=== PATIENT | female | born 1960 | race Caucasian/White ===

== ENCOUNTER 2020-10-19 12:07 | Outpatient (CLI) | payer SELFPAY ==
[~2020-10-19] VITALS: Ht 170.2 cm; Wt 90.8 kg
[2020-10-20] MEDS ORDERED: LEVO75CA5 PO (09:32)
[2020-10-20] MEDS ORDERED: MELO10CA3 PO (09:32)
== END 2020-10-20 10:04 ==
LOC: PREOP 12:07
PROVIDERS: ATTEND Internal Medicine
DX: Z01.818 Encounter for other preprocedural examination (principal); Z12.11 Encounter for screening for malignant neoplasm of colon

== ENCOUNTER 2020-10-27 08:05 | Day surgery (SDC) | payer SELFPAY ==
--- NOTE | 2020-10-19 15:51 | HISTORY AND PHYSICAL ---
DATE OF SERVICE: COLONOSCOPY HISTORY AND PHYSICAL REFERRING PROVIDER: OSMIN Leiva INDICATION FOR THE PROCEDURE: Screening colonoscopy. The patient is a 60-year-old white female referred for her first screening colonoscopy, deemed to be of average risk as she is not aware of any family history for colon cancer and denies melena, bright red blood per rectum or change in bowel habit. PAST MEDICAL HISTORY: Significant for osteoarthritis of the knees and presumed Get's thyroiditis, on thyroid replacement. PAST SURGICAL HISTORY: She had arthroscopic surgery of the right knee in 1999, in 2003 and appendectomy in 2008 and tonsillectomy and adenoidectomy as a child. 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 ALLERGIES: SHE REPORTS TO [facility], WHICH CAUSES RASH. She is not aware of any other medication-related allergies. PHYSICAL EXAMINATION: GENERAL: Reveals a white female, appears to be in no acute distress. VITAL SIGNS: Weight 207 pounds, blood pressure 127/74. HEENT: Unremarkable. CHEST: Clear. CARDIOVASCULAR: Revealed a regular rate and rhythm without murmur, S3 or S4. ABDOMEN: Soft, supple without mass, organomegaly or tenderness. EXTREMITIES: Reveal no cyanosis, clubbing or edema. ASSESSMENT: The patient was set up for screening colonoscopy. Prep instructions with split dose Colyte were given and questions were answered. Job ID: [id number] DocumentID: [id number] Dictated Date: 10/13/2020 11:39:33 [employer] Chief Date: 10/13/2020 16:38:05 Dictated By: GARY LOCO MD MTDD
[2020-10-27] VITALS (13 sets, daily range): BP systolic 117–159; BP diastolic 55–68
[~2020-10-27] VITALS: Ht 170.2 cm; Wt 90.8 kg
[~2020-10-27 08:05] MED LIST: D5 LR IV SOLUTION 1,000 ML IV ONE; LEVO75CA5 PO; MELO10CA3 PO
--- NOTE | 2020-10-27 08:26 | Pre-Op Note & Conscious Sedat ---
Pre-Operative Progress Note H&P Reviewed The H&P was reviewed, patient examined and no changes noted. Date H&P Reviewed: Oct 27, 2020 Time H&P Reviewed: 08:26 Conscious Sedation Pre-Proced ASA Score 2 For ASA 3 and 4: Consider anesthesia and medical clearance. Also, for patients with a history of failed moderate sedation consider anesthesia. Airway Lungs Heart ASA score ASA 1: a normal healthy patient ASA 2: a patient with a mild systemic disease (mid diabetes, controlled hypertension, obesity ASA 3: a patient with a severe systemic disease that limits activity (angina, COPD, prior Myocardial infarction) ASA 4: a patient with an incapacitating disease that is a constant threat to life (CHF, renal failure) ASA 5: a moribund patient not expected to survive 24 hrs. (ruptured aneurysm) ASA 6: a declared brain- patient whose organs are being harvested. For emergent operations, add the letter E after the classification Mallampati Classification Grade 2 Sedation Plan Analgesia, Amnesia, Plan communicated to team members, Discussed options with patient/fam, Discussed risks with patient/fam The patient is an appropriate candidate to undergo the planned procedure, sedation, and anesthesia. The patient immediately re-assessed prior to indication. GARY LOCO MD Oct 27, 2020 08:26
[2020-10-27] MEDS ORDERED: D5 LR IV SOLUTION 1,000 ML IV PRN (08:30)
[2020-10-27] MEDS ORDERED: LIDOCAINE JELLY 2% 6 ML SYRINGE MM PRN (08:30)
[2020-10-27] MEDS ORDERED: fentaNYL INJ 100 MCG/2 ML AMP IVP ONE (08:30)
[2020-10-27] MEDS ORDERED: MIDAZOLAM 5 MG/5 ML (VERSED) VIAL ONE (08:51)
[2020-10-27] MEDS ORDERED: fentaNYL INJ 100 MCG/2 ML AMP ONE (08:51)
[2020-10-27] MEDS ORDERED: LIDOCAINE JELLY 2% 6 ML SYRINGE ONE (08:51)
[2020-10-27] MEDS: MIDAZOLAM 5 MG/5 ML (VERSED) VIAL IV ONE (09:14)
--- NOTE | 2020-10-27 17:15 | OPERATIVE REPORT ---
DATE OF SERVICE: 10/27/2020 COLONOSCOPY SUMMARY INDICATION FOR THE PROCEDURE: Screening colonoscopy. The patient was placed in the left lateral decubitus position. Prior to undergoing colonoscopy, digital rectal evaluation was performed. Anal sphincter tone was normal and the perianal reflex is intact. The colonoscope was then inserted into the rectum and under direct visualization advanced to cecum. The cecum was identified by identification of the ileocecal valve and the cecal strap. Photographic documentation was obtained. Careful inspection was made as the colonoscope was withdrawn. Quality of prep was good. The patient tolerated the procedure well. FINDINGS: There was no evidence for internal or external hemorrhoids and the rectum was unremarkable. A moderate number of small to medium size sigmoid diverticulum were present without evidence for diverticulitis. No other sigmoid colonic abnormalities were appreciated. The descending colon, transverse colon and ascending colon were unremarkable. There was a diminutive 3 mm sessile adenomatous appearing cecal polyp present. It was photographed and biopsied and ablated and submitted for histopathology. ASSESSMENT AND PLAN: 1. Moderate diverticular disease confined to the sigmoid colon was present without evidence for diverticulitis. 2. One diminutive adenomatous appearing polyp was removed via hot forceps from the cecum. We will await histopathology report before making future recommendation for screening colonoscopy. Ss long as there are no suprises on histopathology report as the patient reports no family history of colon cancer, would likely be advocating 10-year interval. Job ID: [id number] DocumentID: [id number] Dictated Date: 10/27/2020 11:13:50 [employer] Engineer Date: 10/27/2020 17:14:38 Dictated By: GARY LOCO MD [id number]
== END 2020-10-27 10:25 | disposition home or self-care (01) ==
LOC: ENDO 08:05
PROVIDERS: ATTEND Internal Medicine
DX: Z12.11 Encounter for screening for malignant neoplasm of colon (principal); D12.0 Benign neoplasm of cecum; K57.30 Diverticulosis of large intestine without perforation or abscess without bleeding; M17.0 Bilateral primary osteoarthritis of knee; E06.3 Autoimmune thyroiditis; Z79.890 Hormone replacement therapy; Z90.89 Acquired absence of other organs
CPT/HCPCS: 88305